=== PATIENT | female | born 1960 | race Caucasian/White ===

== ENCOUNTER 2018-01-22 14:42 | Emergency (ER) | payer SELFPAY | END 2018-01-22 15:14 | disposition home or self-care (01) | LOC: JERFT 14:42 | CPT/HCPCS: 99281-25 ==

== ENCOUNTER 2018-03-29 16:05 | Emergency (ER) | payer SELFPAY ==
[2018-03-29 16:24] VITALS: BMI 29.0
[2018-03-29] MEDS ORDERED: FAMOTIDINE 20 MG/50 ML IVPB 20 MG/50 ML MG IVPB ONE ×2 (16:39→16:45)
[2018-03-29] MEDS ORDERED: hydrOXYzine HCL 25 MG TABLET (FP) PO ONE (16:39)
[2018-03-29] MEDS ORDERED: predniSONE 20 MG TABLET (UD) PO ONE (16:39)
[2018-03-29] MEDS ORDERED: predniSONE 20 MG TABLET (UD) ONE (16:47)
[2018-03-29 17:07] LABS: BASO % 0.6 % (0-2.0); EOS % 1.4 % (0-4.5); HEMATOCRIT 43.7 % (32.4-45.2); HEMOGLOBIN 14.2 GM/dL (10.7-15.3); LYMPH % 28.6 % (8-40); MCH 29.9 pg (25.7-33.7); MCHC 32.5 g/dl (32.0-36.0); MEAN CELL VOLUME 91.9 fl (80-96); MEAN PLT VOLUME 9.1 fl (7.5-11.1); NEUT % 60.4 % (42.8-82.8); PLATELET COUNT 316 K/MM3 (134-434); RBC 4.76 M/mm3 (3.60-5.2); RDW 13.5 % (11.6-15.6); WHITE BLOOD COUNT 15.4 K/mm3 (4.0-10.0)
--- NOTE | 2018-03-29 17:08 | PDOC ---
History of Present Illness - General Chief Complaint: Allergic Reaction Stated Complaint: ALLERGIC REACTION Time Seen by Provider: 03/29/18 16:38 - History of Present Illness Initial Comments: 03/29/18 16:57 58 yo F with no significant pmh who p/w facial rash. Patient reports 2 days of facial hives and itching with spread to neck and back. No eye, mouth, palm, involvement. Denies oozing, crusting, pain, or discharge. Reports chest tightness today (now improved). Denies SOB, tongue swelling, dysphagia. Patient reports new use of topical shampoo for "dandruff" over the past month used daily. Denies new emollients, lotions, makeup, detergents, bedding, clothing, outdoor contact exposure, or seasonal allergies. Denies h/o anaphylactic reaction, intubations. Similar ED presentation 01/22/18 with improvement following Prednisone therapy. No epipen use. Ice use with no improvement. Patient denies N/V, cough, wheezing, hoarseness, muffled voice, vision change, F /C, CP, SOB, urinary complaints, diarrhea, constipation, lightheadedness, weakness, sensory changes. PMHx: as noted above ROS: as noted SHx: Denies Etoh, tobacco, or IVDA. Denies recent outdoor hiking, camping, or traveling. Allergies: NKDA. Denies seasonal or food allergies. 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) Past History - Past Medical History Allergies/Adverse Reactions: Allergies Allergy/AdvReac Type Severity Reaction Status Date / Time No Known Allergies Allergy Verified 01/22/18 14:48 Home Medications: Ambulatory Orders Famotidine [Pepcid] 20 mg PO DAILY #6 tablet MDD 1 tab 03/29/18 Hydroxyzine HCl 25 mg PO QID #20 tablet MDD 4 tab 03/29/18 Prednisone [Deltasone] 20 mg PO BID 3 Days #6 tablet MDD 2 tab 03/29/18 COPD: No - Immunization History Immunization Up to Date: Yes - Suicide/Smoking/Psychosocial Hx Smoking History: Never smoked Hx Alcohol Use: No Drug/Substance Use Hx: No Review of Systems - Review of Systems Comments:: 03/29/18 17:08 GENERAL/CONSTITUTIONAL: No fever or chills. No weakness. HEAD, EYES, EARS, NOSE AND THROAT: No change in vision. No ear pain or discharge. No sore throat. CARDIOVASCULAR: No chest pain or shortness of breath RESPIRATORY: No cough, wheezing, or hemoptysis. GASTROINTESTINAL: No nausea, vomiting, diarrhea or constipation. GENITOURINARY: No dysuria, frequency, or change in urination. MUSCULOSKELETAL: No joint or muscle swelling or pain. No neck or back pain. SKIN: + rash NEUROLOGIC: No headache, vertigo, loss of consciousness, or change in strength/ sensation. ENDOCRINE: No increased thirst. No abnormal weight change HEMATOLOGIC/LYMPHATIC: No anemia, easy bleeding, or history of blood clots. ALLERGIC/IMMUNOLOGIC:+hives and skin allergy. *Physical Exam - Vital Signs Last Vital Signs Temp Pulse Resp BP Pulse Ox 98.7 F 112 H 18 135/91 97 03/29/18 16:17 03/29/18 16:17 03/29/18 16:17 03/29/18 16:17 03/29/18 16:17 - Physical Exam Comments: 03/29/18 17:08 GENERAL: Awake, alert, and fully oriented, in no acute distress HEAD: No signs of trauma, normocephalic, atraumatic EYES: PERRLA, EOMI, sclera anicteric, conjunctiva clear ENT: Auricles normal inspection, hearing grossly normal, nares patent, oropharynx clear without exudates. Moist mucosa NECK: Normal ROM, supple, no lymphadenopathy, JVD, or masses LUNGS: No distress, speaks full sentences, clear to auscultation bilaterally HEART: Regular rate and rhythm, normal S1 and S2, no murmurs, rubs or gallops, peripheral pulses normal and equal bilaterally. ABDOMEN: Soft, nontender, normoactive bowel sounds. No guarding, no rebound. No masses EXTREMITIES : Normal inspection, Normal range of motion, no edema. No clubbing or cyanosis. NEUROLOGICAL: Cranial nerves II through XII grossly intact. Normal speech, normal gait, no focal sensorimotor deficits SKIN: + Widespread erythematous, and urticarial reaction involving forehead, posterior neck, and chest. Absent eye/mouth lesions, or lesions on palms/soles. Warm, Dry, normal turgor. ED Treatment Course - LABORATORY CBC & Chemistry Diagram: 03/29/18 16:57 03/29/18 16:57 - Medications Given in the ED: ED Medications Discontinued Medications Generic Name Dose Route Start Last Admin Trade Name Nathan PRN Reason Stop Dose Admin Prednisone 60 mg 03/29/18 16:39 03/29/18 16:49 Deltasone - PO 03/29/18 16:40 60 mg ONCE ONE Administration Medical Decision Making - Medical Decision Making 03/29/18 17:16 58 yo F with no significant pmh who p/w urticarial facial rash. Spares eyes/ mucosa, palms/soles. HR 112, vitals otherwise wnl, AF. No evidence of resp distress or s/s of laryngeal edema. Low suspicion of severe allergic reaction or anaphylaxis. Absent stridor, hoarseness, mucosal edema, wheezing, N/V. Most likely acute atopic dermatitis / hypersensitivity reaction to contact allergen. 03/29/18 17:23 ED Course: CBC, CMP Hydralazine, NS, Prednisone, Atarax *DC/Admit/Observation/Transfer Diagnosis at time of Disposition: Hives Allergic reaction Qualifiers: Encounter type: initial encounter Qualified Code(s): T78.40XA - Allergy, unspecified, initial encounter - Discharge Dispostion Condition at time of disposition: Stable Decision to Admit order: No - Prescriptions Prescriptions: Famotidine [Pepcid] 20 mg PO DAILY #6 tablet MDD 1 tab Hydroxyzine HCl 25 mg PO QID #20 tablet MDD 4 tab Prednisone [Deltasone] 20 mg PO BID 3 Days #6 tablet MDD 2 tab - Referrals Referrals: Kane Patel MD [Staff Physician] - - Patient Instructions Printed Discharge Instructions: DI for General Allergic Reactions, DI for Adverse Drug Reaction -- Allergic Additional Instructions: Please return to the emergency department with any new or worsening symptoms or concerns. Please follow up with your primary care physician within 72 hours. Please take Prednisone tablets 3 times per day. Please take hydroxyzine and pepcid daily for symptom management. Please discontinue shampoo use at home. - Post Discharge Activity - Attestations Physician Attestion: 03/29/18 17:25 I attest to the information provided in this note.
--- NOTE | 2018-03-29 17:17 | PDOC ---
Attending Attestation - Resident Resident Name: Demetri Carolina - HPI HPI: 03/29/18 17:10 58 YOF with no medical history presenting with hives x 2 weeks intermittently, worse today with pruritic rash over her head and forehead and anterior chest wall, a/w chest tightness and dry mouth. 2 weeks ago with similar sx, resolved with 3 days of steroids; prior history of similar episode of urticaria in treated with steroids. only new exposure includes new shampoo x 1 month ago that is also causing irritation to her scalp. denies environmental exposures, abx or insect bites or trauma. no changes in voice, dyspnea, abd pain, n/v/d, weakness or paresthesias. no new meds changed. 03/29/18 20:06 - Physicial Exam PE: 03/29/18 17:11 General: Well appearing, awake and alert, NAD. HEENT: NCAT, +maculopapular rash over forehead and face. PERRL, EOMI, clear conjunctiva, anicteric, moist mucus membranes, clear oropharynx. Airway patent, normal phonation, uvula midline. no oral lesions, normal dentition. Neck: neck supple, FROM, no LAD or masses Lungs: CTAB, normal and even respirations, no respiratory distress Heart: RRR, no murmurs, 2+ peripheral pulses throughout, no peripheral edema Abdomen: soft, NTND, no peritoneal signs. : no perineal involvement, external maculopapular rash over external genitalia , pruritic. Back: nontender, normal inspection and ROM Extremities: no edema, CURTIS x4, ROM intact. No clubbing or cyanosis Neuro: alert, oriented appropriately Skin: warm and well perfused, cap refill <2 sec, normal color; +maculopapular - urticarial rash noted to forehead and scattered lesions over anterior chest wall. scant urticarial rash over anterior external genitalia. no dequamatization lesions - Medical Decision Making 03/29/18 17:13 58 YOF with urticarial rash x 2 weeks, worse today, with precipitant likely new shampoo she started 1 month ago. no fevers. Selected Entries 03/29/18 16:17 Temperature 98.7 F Pulse Rate 112 H Respiratory 18 Rate Blood Pressure 135/91 O2 Sat by Pulse 97 Oximetry (%) phys exam as documented, no fevers, but tachycardia due to anxiety and discomfort interventions in the ED include prednisone, pepcid and hydroxyzine, IVF. DDx SJS, TEN. urticaria, allergic reaction, anaphylaxis, DRESS, hypersensitivity reaction, atopic dermatitis. doubt SJS or TEN given no desquamatization or mucosal involvement. no precipitants identified, doubt Dress or immune complex reaction labs wnl reassuring. also no fevers. VS improved, no longer tachy with treatment and treating underlying cause. with treatment, resolving sx. likely atopic dermatitis vs. allergic/ hypersensitivity reaction to new shampoo dx urticaria, with similar sx as prior. will given appropriately dosed prednisone course x 5 days, hydroxyzine, PO pepcid for dual antihistamine effect. avoid precipitants and PCP followup. return precautions discussed, d/w pt and family impression and plan, agreeable to management. expectant management and course discussed. avoid precipitant including new shampooo 03/29/18 17:14 03/29/18 20:05 03/29/18 20:07
[2018-03-29] MEDS ORDERED: SODIUM CHLORIDE 1,000 ML IV STA (17:19)
[2018-03-29 17:35] LABS: ALBUMIN 3.7 g/dl (3.4-5.0); ALK PHOS 82 U/L (45-117); ANION GAP 11 (8-16); BILIRUBIN,TOTAL 0.3 mg/dL (0.2-1.0); BLOOD UREA NITROGEN 16 mg/dL (7-18); CALCIUM 8.7 mg/dL (8.5-10.1); CHLORIDE 104 mmol/L (98-107); CO2 26 mmol/L (21-32); CREATININE 0.8 mg/dL (0.55-1.02); GLUCOSE,RANDOM 118 mg/dL (74-106); POTASSIUM 3.7 mmol/L (3.5-5.1); SGOT/AST 13 U/L (15-37); SGPT/ALT 22 U/L (12-78); SODIUM 141 mmol/L (136-145); TOT PROT 7.3 g/dl (6.4-8.2)
[2018-03-29 18:20] VITALS: BP 159/86; PULSE 88; TEMP 98.6
--- NOTE | 2018-04-03 10:15 | EKG ---
Test Reason : Blood Pressure : / mmHG Vent. Rate : 102 BPM Atrial Rate : 102 BPM P-R Int : 172 ms QRS Dur : 080 ms QT Int : 350 ms P-R-T Axes : 041 -01 048 degrees QTc Int : 456 ms SINUS TACHYCARDIA POSSIBLE LEFT ATRIAL ENLARGEMENT BORDERLINE ECG WHEN COMPARED WITH ECG OF 16-JUN-2006 15:30, NO SIGNIFICANT CHANGE WAS FOUND Confirmed by VESTA HOLLINS MD ([id number]) on 04/03/2018 10:15:07 AM Referred By: Confirmed By:VESTA HOLLINS MD
== END 2018-03-29 18:20 | disposition home or self-care (01) ==
LOC: JER 16:05
PROC: 3E033GC Introduction of Other Therapeutic Substance into Peripheral Vein, Percutaneous Approach (ICD-10-PCS; principal; 2018-03-29)
PROC: 3E0337Z Introduction of Electrolytic and Water Balance Substance into Peripheral Vein, Percutaneous Approach (ICD-10-PCS; 2018-03-29)
DX: T78.40XA Allergy, unspecified, initial encounter (principal); L50.9 Urticaria, unspecified
CPT/HCPCS: 36415; 80053; 85025; 93005; 93010; 99282-25; J7030

== ENCOUNTER 2020-12-18 22:50 | Emergency (ER) | payer OTHER ==
[2020-12-18 23:15] VITALS: BP 136/78; PULSE 79; TEMP 98; BMI 28.6
[2020-12-18 23:55] LABS: HEMATOCRIT 41.5 % (32.4-45.2); HEMOGLOBIN 13.8 GM/dL (10.7-15.3); MCH 30.9 pg (25.7-33.7); MCHC 33.3 g/dl (32.0-36.0); MEAN CELL VOLUME 92.7 fl (80-96); MEAN PLT VOLUME 9.5 fl (7.5-11.1); PLATELET COUNT 263 K/MM3 (134-434); RBC 4.48 M/mm3 (3.60-5.2); RDW 13.6 % (11.6-15.6); WHITE BLOOD COUNT 13.7 K/mm3 (4.0-10.0)
[2020-12-19 00:09] LABS: INR 1.09 (0.83-1.09); PROTHROMBIN TIME (PATIENT) 13.1 SEC (9.7-13.0)
[2020-12-19 00:11] LABS: ACTIVATED PTT 33.9 SECONDS (25.2-36.5)
[2020-12-19 00:12] LABS: EPI CELLS 6 /uL (0-25.1); HYALINE CASTS 0 /uL (0-3.1); PH,URINE 5.5 (5.0-8.0); URINE APPEARANCE CLEAR; URINE BACTERIA 9 /uL (0-1359); URINE BILIRUBIN NEGATIVE (NEGATIVE); URINE COLOR RED; URINE GLUCOSE (UA) NEGATIVE (NEGATIVE); URINE KETONE 1+ (NEGATIVE); URINE LEUK ESTERASE TRACE (NEGATIVE); URINE NITRITE NEGATIVE (NEGATIVE); URINE PROTEIN 1+ (NEGATIVE); URINE RBC 19063 /uL (0-23.9); URINE WBC 44 /uL (0-25.8)
[2020-12-19 00:21] LABS: POTASSIUM 3.8 mmol/L (3.5-5.1)
[2020-12-19 00:23] LABS: CALCIUM 9.6 mg/dL (8.5-10.1)
[2020-12-19 00:24] LABS: ALBUMIN 3.8 g/dl (3.4-5.0); BLOOD UREA NITROGEN 19.8 mg/dL (7-18)
[2020-12-19 00:27] LABS: CREATININE 0.6 mg/dL (0.55-1.3)
[2020-12-19 00:29] LABS: BILIRUBIN,TOTAL 0.3 mg/dL (0.2-1); TOT PROT 7.5 g/dl (6.4-8.2)
[2020-12-19] MEDS ORDERED: CEPHALEXIN MONOHYDRATE 500 MG CAPSULE (UD) PO ONE (01:37)
[2020-12-19] MEDS ORDERED: CEPHALEXIN MONOHYDRATE 500 MG CAPSULE (UD) ONE (01:44)
== END 2020-12-19 01:54 | disposition home or self-care (01) ==
LOC: JER 22:50
DX: N30.01 Acute cystitis with hematuria (principal)
CPT/HCPCS: 36415; 80053; 81003; 83690; 85027; 85610; 85730; 86850; 86900; 86901; 87086; 99284-25

== ENCOUNTER 2020-12-22 02:28 | Emergency (ER) | payer OTHER ==
[2020-12-22 02:47] VITALS: BMI 28.3
[2020-12-22] MEDS ORDERED: ACETAMINOPHEN 1000 MG/100 ML VIAL (NON FORMULARY) IVPB ONE (03:38)
[2020-12-22] MEDS ORDERED: ONDANSETRON 4 MG/2 ML VIAL IVPUSH ONE (03:38)
[2020-12-22] MEDS ORDERED: ACETAMINOPHEN INJECTION 100 ML IVPB ONE (03:47)
[2020-12-22] MEDS ORDERED: ONDANSETRON 4 MG/2 ML VIAL ONE (03:47)
[2020-12-22 04:05] LABS: EOS % 2.5 % (0-4.5); HEMATOCRIT 41.2 % (32.4-45.2); HEMOGLOBIN 13.7 GM/dL (10.7-15.3); MCH 30.9 pg (25.7-33.7); MCHC 33.3 g/dl (32.0-36.0); MEAN CELL VOLUME 92.8 fl (80-96); MEAN PLT VOLUME 9.5 fl (7.5-11.1); MONO % 10.7 % (3.8-10.2); NEUT % 49.8 % (42.8-82.8); PLATELET COUNT 276 K/MM3 (134-434); RBC 4.44 M/mm3 (3.60-5.2); RDW 13.1 % (11.6-15.6); WHITE BLOOD COUNT 11.7 K/mm3 (4.0-10.0)
[2020-12-22 04:19] LABS: POTASSIUM 3.7 mmol/L (3.5-5.1)
[2020-12-22 04:22] LABS: BLOOD UREA NITROGEN 22.1 mg/dL (7-18)
[2020-12-22 04:25] LABS: CREATININE 0.7 mg/dL (0.55-1.3)
[2020-12-22 04:27] LABS: BILIRUBIN,TOTAL 0.4 mg/dL (0.2-1); TOT PROT 7.5 g/dl (6.4-8.2)
[2020-12-22] MEDS ORDERED: METOCLOPRAMIDE HCL INJECTION 10 MG/2 ML VIAL IVPUSH ONE (04:59)
[2020-12-22] MEDS ORDERED: METOCLOPRAMIDE HCL INJECTION 10 MG/2 ML VIAL ONE (05:05)
[2020-12-22 06:00] LABS: EPI CELLS 16 /uL (0-25.1); HYALINE CASTS 4 /uL (0-3.1); URINE APPEARANCE CLOUDY; URINE BACTERIA 22 /uL (0-1359); URINE BILIRUBIN NEGATIVE (NEGATIVE); URINE COLOR YELLOW; URINE GLUCOSE (UA) NEGATIVE (NEGATIVE); URINE KETONE 2+ (NEGATIVE); URINE LEUK ESTERASE NEGATIVE (NEGATIVE); URINE NITRITE NEGATIVE (NEGATIVE); URINE PROTEIN TRACE (NEGATIVE); URINE UROBILINOGEN 0.2 mg/dL (0.2-1.0); URINE WBC 37 /uL (0-25.8)
[2020-12-22 06:19] VITALS: BP 122/71; PULSE 82; TEMP 97.7
[2020-12-22 11:13] LABS: URINE RBC 81.4 /uL (0-23.9)
== END 2020-12-22 06:19 | disposition home or self-care (01) ==
LOC: JER 02:28
PROC: 3E033NZ Introduction of Analgesics, Hypnotics, Sedatives into Peripheral Vein, Percutaneous Approach (ICD-10-PCS; principal; 2020-12-22)
PROC: 3E033GC Introduction of Other Therapeutic Substance into Peripheral Vein, Percutaneous Approach (ICD-10-PCS; 2020-12-22)
DX: N20.0 Calculus of kidney (principal); N85.8 Other specified noninflammatory disorders of uterus
CPT/HCPCS: 36415; 74176-TC; 80053; 81003; 85025; 99285-25; J0131

== ENCOUNTER 2022-02-21 12:17 | Emergency (ER) | payer OTHER ==
[2022-02-21 12:28] VITALS: BP 131/94; PULSE 80; TEMP 98; BMI 28.3
[2022-02-21 13:48] LABS: EPI CELLS 3 /uL (0-25.1); HYALINE CASTS 2 /uL (0-3.1); PH,URINE 5.5 (5.0-8.0); URINE APPEARANCE CLEAR; URINE BACTERIA 7 /uL (0-1359); URINE BILIRUBIN NEGATIVE (NEGATIVE); URINE COLOR YELLOW; URINE GLUCOSE (UA) NEGATIVE (NEGATIVE); URINE KETONE NEGATIVE (NEGATIVE); URINE LEUK ESTERASE TRACE (NEGATIVE); URINE NITRITE NEGATIVE (NEGATIVE); URINE PROTEIN NEGATIVE (NEGATIVE); URINE RBC 8 /uL (0-23.9); URINE UROBILINOGEN 0.2 mg/dL (0.2-1.0); URINE WBC 48 /uL (0-25.8)
== END 2022-02-21 14:21 | disposition home or self-care (01) ==
LOC: JER 12:17
DX: N39.0 Urinary tract infection, site not specified (principal)
CPT/HCPCS: 81003; 87086; 99283-25